=== PATIENT | male | born 1970 | race Caucasian/White ===

== ENCOUNTER 2017-05-15 19:37 | Emergency (ER) | payer BC ==
[~2017-05-15] VITALS: Ht 182.9 cm; Wt 112.3 kg
[2017-05-15 21:16] LABS: HEMATOCRIT 46.1 % (38.0-50.0); MCH 29.5 PG (29.0-34.0); MCHC 33.4 G/DL (30.0-36.0); MCV 88.3 FL (86-99); MEAN PLAT.VOLUME 8.6 uM^3 (9.0-12.4); PLATELET COUNT 276 K/uL (156-360); RBC DIS.WIDTH-CV 12.1 % (11.8-14.6); RBC DIS.WIDTH-SD 39.3 % (39-53); RED BLOOD COUNT 5.22 M/uL (4.00-5.50); WHITE BLOOD COUNT 5.9 K/uL (4.1-10.2)
[2017-05-15 21:24] LABS: CHLORIDE 112 mEq/L (99-109); SODIUM 145 mEq/L (136-147)
[2017-05-15 21:26] LABS: GLUCOSE 99 mg/dL (70-99)
[2017-05-15 21:27] LABS: ANION GAP 8 MEQ/L (2-14)
[2017-05-15 21:30] LABS: GFR ESTIMATE (CALCULATED) > 59 mL/min/
[2017-05-15 21:31] LABS: UREA NITROGEN (BUN) 16 mg/dL (9-23)
[2017-05-15 21:32] LABS: CREATINE KINASE 80 IU/L (1-294)
[2017-05-15 22:33] LABS: ADD MIUA? YES; BILIRUBIN NEGATIVE; BLOOD NEGATIVE; COLOR YELLOW ((YELLOW)); GLUCOSE (STRIP) NEGATIVE; KETONES NEGATIVE; LEUKOCYTES NEGATIVE; NITRITE NEGATIVE; PROTEIN (STRIP) NEGATIVE; SPECIFIC GRAVITY 1.026 (1.000-1.030)
[2017-05-15 22:45] LABS: BACTERIA NONE SEEN /HPF; EPITHELIAL CELLS NONE SEEN /HPF; MUCUS TRACE /LPF; RED BLOOD CELLS 0-5 /HPF (0-5); WHITE BLOOD CELLS 0-5 /HPF (0-5)
[2017-05-15] MEDS ORDERED: INDOCIN50 MG PO (22:56)
[2017-05-15] MEDS ORDERED: NORCO 10/3251 TABLET PO (22:56)
[2017-05-15] MEDS ORDERED: VALIUM5 MG PO (22:56)
[2017-05-15 23:17] VITALS: BP 156/98
== END 2017-05-15 23:18 | disposition home or self-care (01) ==
LOC: EME 19:37
PROVIDERS: Physician Assistant
DX: M54.42 Lumbago with sciatica, left side (principal)
CPT/HCPCS: 80048; 81003; 82550; 85027; 99281; 99283; J3010